=== PATIENT | female | born 1985 | race Caucasian/White ===

== ENCOUNTER 2016-11-06 02:34 | Emergency (ER) | payer OTHER ==
[~2016-11-06] VITALS: Ht 162.6 cm; Wt 78.6 kg
[2016-11-06 02:37] VITALS: TEMP 37.1; Ht 162.6 cm; Wt 78.6 kg
[2016-11-06] MEDS ORDERED: ONDANSETRON INJ 2 MG/ML 2 ML VIAL IV STA ×2 (02:51→04:03)
[2016-11-06] MEDS ORDERED: SODIUM CHLORIDE 0.9% 1000ML 1,000 ML IV STA ×2 (02:51→04:03)
[2016-11-06 03:05] LABS: HEMATOCRIT 40.9 % (37-47); MEAN CELL VOLUME 89.9 fL (80-100); MEAN CORPUSCULAR HEMOGLOBIN 31.9 pg (25-34); MEAN CORPUSCULAR HGB CONC 35.5 g/dl (32-36); PLATELET COUNT 281 K/uL (130-400); RED BLOOD COUNT 4.55 M/uL (4.2-5.4); WHITE BLOOD COUNT 6.45 K/uL (4.8-10.8)
[2016-11-06 03:27] LABS: BUN/CREATININE RATIO 13.1 (10-20); CALCIUM 8.4 mg/dl (8.5-10.1); CREATININE 0.75 mg/dl (0.60-1.20); POTASSIUM 3.3 mmol/L (3.5-5.1)
[2016-11-06] MEDS ORDERED: MoRPHine SULFATE 2 MG/ML CARP ONE (04:26)
[2016-11-06] MEDS ORDERED: MoRPHine SULFATE 4 MG/ML 1 ML CARP\\VIAL ONE (04:26)
[2016-11-06] MEDS ORDERED: MoRPHine SULFATE 10 MG/ML CARP/VIAL IV STA (04:27)
[2016-11-06 04:48] LABS: PREG INTERNAL NEGATIVE QC NEG CLEAR BACKGROUND; PREG INTERNAL POSITIVE QC POS CONTROL LINE; URINE APPEARANCE TURBID (CLEAR); URINE COLOR ORANGE; URINE EPITHELIAL CELL AUTO >30 /lpf (0-5); URINE NITRITE POS (NEG); URINE PH 5.5 (4.5-7.5); URINE SPECIFIC GRAVITY 1.035 (1.000-1.030); UROBILINOGEN NEG (NEG); ZZUR CULT IF INDIC CLEAN CATCH NO
[2016-11-06 04:49] LABS: MANUAL MICROSCOPIC REQUIRED? NO; REVIEW REQ? YES; URINE BILIRUBIN NEG (NEG)
--- NOTE | 2016-11-06 05:25 | EMERGENCY ROOM VISIT NOTE ---
History Report prepared by Triston: Seema Duffy Under the Supervision of: Dr. Yanick Stevens M.D. First contact with patient: 02:43 Chief Complaint: VOMITING Stated Complaint: VOMITING,LIGHT HEADED,DIARRHEA - 5WKS History of Present Illness The patient is a 31 year old female who presents to the Emergency Room via with complaints of worsening vomiting with onset one hour ago. The patient is currently five weeks ; this is her second . The patient states that she has some episodes of seeing spots and feeling as if she may pass out. She has also been having diarrhea. The patient first noticed some light spotting ten hours ago. The patient has been nauseous. The patient has had some vaginal bleeding. She denies other problems with the current . The patient has known that she was for one week. She has not seen OB yet. The patient denies abdominal pain. She is having some pelvic pain radiating into her back. The patient's blood type is O+. Source of History: patient Onset: one hour ago Position: abdomen Quality: other (vomiting) Timing: worsening Associated Symptoms: + diarrhea, + nausea, No abdominal pain Note: The patient states that she has some episodes of seeing spots and feeling as if she may pass out. The patient first noticed some light spotting ten hours ago. She is having some pelvic pain radiating into her back. Review of Systems See HPI for pertinent positives & negatives. A total of 10 systems reviewed and were otherwise negative. Past Medical & Surgical Medical Problems: (1) Sprained ankle Surgical Problems: (1) History of cholecystectomy Family History FHx: cancer FHx: gallbladder disease Hypertension Social History Smoking Status: Never Smoker Alcohol Use: none Marital Status: Housing Status: lives with family Current/Historical Medications No Active Prescriptions or Reported Meds Allergies Coded Allergies: No Known Allergies (Unverified , 11/06/16) Physical Exam Vital Signs Date Time Temp Pulse Resp B/P Pulse Ox O2 Delivery O2 Flow Rate FiO2 11/06/16 05:30 80 18 114/82 98 Room Air 11/06/16 04:37 98 20 123/79 100 Room Air 11/06/16 03:50 96 20 114/75 97 Room Air 11/06/16 02:37 37.1 111 20 117/74 96 Room Air Physical Exam GENERAL: Patient is anxious appearing and in mild distress. HEENT: No acute trauma, normocephalic atraumatic, mucous membranes moist, no nasal congestion, no scleral icterus. NECK: No stridor, no adenopathy, no meningismus, trachea is midline. LUNGS: No dyspnea. Clear to auscultation and equal bilaterally. No wheeze, no rhonchi. HEART: Tachycardic rate and regular rhythm. No murmurs, rubs, gallops appreciated. ABDOMEN: Soft, nontender, bowel sounds positive, no masses appreciated, no peritonitis. BACK: No midline tenderness, no CVA tenderness EXTREMITIES: Normal motion all extremities, no cyanosis, no edema. NEUROLOGIC: Alert and oriented, no acute motor or sensory deficits, no focal weakness, cranial nerves grossly intact. SKIN: No rash, no jaundice, no diaphoresis. PELVIC: Normal external genitalia, she has a small amount of clotted blood in the vaginal vault, she has a small amount of blood coming from the cervix. Cervix is consistent with previous vaginal delivery. Not open. Medical Decision & Procedures ER Provider Diagnostic Interpretation: Ultrasound results are stated below per my interpretation and the radiologist's interpretation. US Pelvic/ Endovag: No evidence of an IUP or ectopic . Correlation with beta hCG and short- term follow-up if clinically indicated. The uterus and endometrium are unremarkable. The ovaries are unremarkable. No torsion or masses. No free fluid in the pelvis. Radiologist: González Coleman MD. Laboratory Results 11/06/16 02:53 11/06/16 02:53 Test 11/06/16 02:53 11/06/16 02:55 Red Blood Count 4.55 M/uL (4.2-5.4) Mean Corpuscular Volume 89.9 fL (80-100) Mean Corpuscular Hemoglobin 31.9 pg (25-34) Mean Corpuscular Hemoglobin Concent 35.5 g/dl (32-36) RDW Standard Deviation 40.1 fL (36.4-46.3) RDW Coefficient of Variation 12.3 % (11.5-14.5) Mean Platelet Volume 9.0 fL (7.4-10.4) Anion Gap 9.0 mmol/L (3-11) Est Creatinine Clear Calc Drug Dose 109.3 ml/min Estimated GFR () 122.2 Estimated GFR (Non- 105.5 BUN/Creatinine Ratio 13.1 (10-20) Calcium Level 8.4 mg/dl (8.5-10.1) Human Chorionic Gonadotropin, Quant 8 mIU/mL Urine Color ORANGE Urine Appearance TURBID (CLEAR) Urine pH 5.5 (4.5-7.5) Urine Specific [place] 1.035 (1.000-1.030) Urine Protein TRACE (NEG) Urine Glucose (UA) NEG (NEG) Urine Ketones TRACE (NEG) Urine Occult Blood 3+ (NEG) Urine Nitrite POS (NEG) Urine Bilirubin NEG (NEG) Urine Urobilinogen NEG (NEG) Urine Leukocyte Esterase TRACE (NEG) Urine WBC (Auto) 5-10 /hpf (0-5) Urine RBC (Auto) >30 /hpf (0-4) Urine Hyaline Casts (Auto) 1-5 /lpf (0-5) Urine Epithelial Cells (Auto) >30 /lpf (0-5) Urine Bacteria (Auto) NEG (NEG) Urine Renal Epithelial Cells 0-5 /lpf (0-5) Urine Crystals AMORPHOUS SEDIMENT (NONE Urine Pathogenic Casts /lpf (0) Urine Test NEG (NEG) Laboratory results as reviewed by me. Medications Administered Medications (Trade) Dose Ordered Sig/Mayuri Route Start Time Stop Time Status Last Admin Dose Admin Sodium Chloride (Nss 1000ml) 1,000 ml @ 999 mls/hr Q1H1M STAT IV 11/06/16 02:51 11/06/16 03:51 DC 11/06/16 03:07 999 MLS/HR Ondansetron HCl 4 mg 4 mg NOW STAT IV 11/06/16 02:51 11/06/16 02:54 DC 11/06/16 03:06 4 MG Sodium Chloride (Nss 1000ml) 1,000 ml @ 999 mls/hr Q1H1M STAT IV 11/06/16 04:03 11/06/16 05:03 DC 11/06/16 04:09 999 MLS/HR Ondansetron HCl (Zofran Inj) 4 mg NOW STAT IV 11/06/16 04:03 11/06/16 04:04 DC 11/06/16 04:09 4 MG Morphine Sulfate (MoRPHine SULFATE INJ) 4 mg STK-MED ONCE .ROUTE 11/06/16 04:26 11/06/16 04:29 DC 11/06/16 04:33 4 MG Morphine Sulfate (MoRPHine SULFATE INJ) 2 mg STK-MED ONCE .ROUTE 11/06/16 04:26 11/06/16 04:29 DC 11/06/16 04:33 2 MG Ondansetron HCl (ZOFRAN ODT 4MG Home Pack) 1 homepack UD ONCE PO 11/06/16 05:30 11/06/16 05:31 DC 11/06/16 05:45 1 HOMEPACK Oxycodone HCl (Roxicodone Immediate Rel 5MG Home Pack) 1 homepack UD ONCE PO 11/06/16 05:30 11/06/16 05:31 DC 11/06/16 05:45 1 HOMEPACK ED Course 0246: The patient was evaluated in room B6. A complete history and physical exam was performed. 0251: Zofran 4 mg IV, Sodium Chloride 1000 ml @ 999 mls/hr IV 0345: I reevaluated the patient; she is feeling much improved. 0402: I reevaluated the patient; she is feeling nauseous. 0403: Zofran 4 mg IV, Sodium Chloride 1000 ml @ 999 mls/hr IV 0419: I reevaluated the patient; she is feeling better. 0425: Per nursing staff, the patient is having 6/10 pain. 0427: Morphine Sulfate 6 mg IV 0522: Reevaluated the patient. Discussed results and discharge instructions: She verbalized understanding and agreement. The patient is ready for discharge. 0530: Oxycodone HCl 5 mg 1 homepack PO, Zofran 4 mg 1 homepack PO Medical Decision Differential: 1st Trimester Vaginal Bleeding, Miscarriage, Infectious, Ectopic , Bleeding Dyscrasia, amongst other pathologies entertained. Very pleasant 31 yr old female with firm LMP at 5 weeks and recent positive test. Notes moderate discomfort on level with previous periods and vaginal bleeding. US with no acute IUP though no evidence of ectopic either. HCG is only 8. Hgb normal. O+ blood type. UA consistent with blood and no UTI symptoms. With her very certain on dates it seems very likely this is miscarriage though I stressed that it could just be very very early and repeat HCG and possibly US will be necessary. has had some recent vomiting and diarrhea thus is mildly dehydrated with improvement after fluids. Some increased cramping here with improvement after morphine. Pelvic exam consistent with mild bleeding from os. She was stable and monitored for several hours doing well. Discussed symptoms/findings requiring return to ED. Impression Primary Impression: Miscarriage, threatened, early Scribe Attestation The scribe's documentation has been prepared under my direction and personally reviewed by me in its entirety. I confirm that the note above accurately reflects all work, treatment, procedures, and medical decision making performed by me. Departure Information Dispostion Home / Self-Care Prescriptions No Active Prescriptions or Reported Meds Patient Instructions ED Miscarriage Poss, My [facility] Additional Instructions It will be important to follow up with OB in the next week for repeat blood testing and possibly repeat [employer]. We are always here to help. Return if worsening pain, fevers, vomiting, passing out or other concerns. Monitor for worsening bleeding. If you are using more than 1 pad an hour for multiple hours return for repeat evaluation. If heavily bleeding return immediately. You have received a narcotic pain medication to go home with. Use 1 tablet every 4 to 6 hours as needed for cramping. These medications may cause drowsiness and should not be used with other sedative medications. Do not drive , drink alcohol, perform dangerous activities, nor make important decisions after taking these medications.
[2016-11-06 05:30] VITALS: BP 114/82; PULSE 80; O2SAT 98
[2016-11-06] MEDS ORDERED: OXYCODONE IR HOME PACK PO ONE (05:30)
[2016-11-06] MEDS ORDERED: ONDANSETRON HOME PACK 4MG OD TAB PO ONE (05:30)
--- NOTE | 2016-11-06 08:05 | DIAGNOSTIC IMAGING REPORT ---
ULTRASOUND OF THE PELVIS CLINICAL HISTORY: . Vaginal bleeding. COMPARISON STUDY: No priors. TECHNIQUE: Real-time, grayscale, and color flow sonography of the pelvis is performed both transabdominally and endovaginally. Images are reviewed in the transverse and longitudinal planes. FINDINGS: Uterus: The retroverted uterus is normal in size and echotexture, measuring 7.7 x 5.1 x 5.7 cm. Endometrium: The endometrium is normal in appearance, and the endometrial stripe is mildly thickened measuring up to 1.3 cm. Ovaries: The ovaries are normal in size and morphology. The right ovary measures 3.3 x 2.1 x 2.7 cm and the left ovary measures 3.4 x 2.1 x 2.8 cm. There are numerous small bilateral ovarian follicles. Normal Doppler waveforms are shown within both ovaries. Pelvis: There is no free fluid in the cul-de-sac. No concerning adnexal lesion is seen. IMPRESSION: 1. No intrauterine gestation is identified. This could simply reflect an intrauterine gestation that is too small to visualize or a missed . Although there is no concerning adnexal lesion identified, in the setting of a positive test without a confirmed intrauterine gestation ectopic would be impossible to exclude. Close clinical, laboratory, and sonographic follow-up is recommended. 2. The ovaries are normal in appearance. Electronically signed by: Eric Mcwilliams M.D. 11/06/2016 8:03 AM Dictated Date/Time: 11/06/2016 8:02 AM
== END 2016-11-06 05:49 | disposition home or self-care (01) ==
LOC: C.EDB 02:37
DX: O20.0 Threatened abortion (principal); Z3A.00 Weeks of gestation of pregnancy not specified; Z90.49 Acquired absence of other specified parts of digestive tract